=== PATIENT | male | born 1960 | race Caucasian/White ===

== ENCOUNTER 2017-05-26 01:38 | Inpatient (IN) | payer OTHER ==
[~2017-05-26] VITALS: Ht 198.1 cm; Wt 114.6 kg
[~2017-05-26 01:38] MED LIST: CARI250T PO
[2017-05-26] MEDS ORDERED: AMPICILLIN/SULBACTAM 3 GM in SODIUM CHLORIDE 0.9% 100 ML IV ONE (02:30)
[2017-05-26] MEDS ORDERED: SODIUM CHLORIDE FLUSH 10ML SYR IVF ONE ×2 (02:30)
[2017-05-26] MEDS ORDERED: ACETAMINOPHEN 500 MG TABLET PO ONE (02:30)
[2017-05-26] MEDS ORDERED: SODIUM CHLORIDE 0.9% 1,000ML IVBOLUS ONE (02:30)
[2017-05-26] MEDS ORDERED: VANCOMYCIN PER PHARMACY IV ONE (02:30)
[2017-05-26] MEDS ORDERED: ACETAMINOPHEN 500 MG TABLET ONE (02:39)
[2017-05-26] MEDS ORDERED: VANCOMYCIN 2,100 MG in SODIUM CHLORIDE 0.9% 500 ML IV ONE (03:00)
[2017-05-26 03:06] LABS: ASPARTATE AMINO TRANSFERASE 20 U/L (15-37); BLOOD UREA NITROGEN 14 mg/dL (7-18)
[2017-05-26] MEDS ORDERED: SODIUM CHLORIDE 0.9% 1,000 ML IV ONE (04:33)
[2017-05-26] MEDS ORDERED: ONDANSETRON 2MG/ML, 2ML IVPush PRN ×2 (05:00→05:30)
[2017-05-26] MEDS ORDERED: MORPHINE SULFATE 4 MG/ML, 1ML IVPush PRN (05:00)
[2017-05-26] MEDS ORDERED: NS + 20MEQ KCL 1,000 ML IV SCH ×2 (05:11→14:30)
[2017-05-26] MEDS ORDERED: VANCOMYCIN PER PHARMACY MC PRN (05:30)
[2017-05-26] MEDS ORDERED: TEMPLATE NON-FORMULARY MED. (Carisoprodol** (Soma**) 250 MG) HOMEMEDPO PRN (05:30)
[2017-05-26] MEDS ORDERED: morphine SULFATE 10 MG/ML, 1ML IVPush PRN (05:30)
[2017-05-26] MEDS ORDERED: POLYETHYLENE GLYCOL 17 GM PACKET PO PRN (05:30)
[2017-05-26] MEDS ORDERED: ACETAMINOPHEN 325 MG TABLET PO PRN (05:30)
[2017-05-26] MEDS ORDERED: DOCUSATE 100 MG CAPSULE PO PRN (05:30)
[2017-05-26 05:57] VITALS: BP 120/74
[2017-05-26] MEDS: AMPICILLIN/SULBACTAM 3 GM in SODIUM CHLORIDE 0.9% 100 ML IV SCH ×3 (06:25→18:14)
[2017-05-26] MEDS: HYDROcodone/APAP 5/325 TABLET PO PRN ×5 (06:25→23:23)
[2017-05-26] MEDS: ENOXAPARIN 40 MG/0.4 ML SQ SCH (06:25)
[2017-05-26 06:30] VITALS: BP 120/74
[2017-05-26] MEDS ORDERED: PHARMACOKINETIC MONITORING MC PRN (06:30)
[2017-05-26] MEDS ORDERED: PHARMACOKINETIC CONSULTATION MC ONE (06:30)
[2017-05-26] MEDS: SENNA/DOCUSATE TABLET PO SCH (10:33)
[2017-05-26 14:57] VITALS: BP 126/80
[2017-05-26] MEDS ORDERED: VANCOMYCIN 2,000 MG in SODIUM CHLORIDE 0.9% 250 ML IV SCH (15:00)
[2017-05-26 19:14] VITALS: BP 126/64
[2017-05-26] MEDS ORDERED: OMNIPAQUE 350 MG/ML, 100ML BOTTLE ONE (19:57)
[2017-05-27] MEDS: AMPICILLIN/SULBACTAM 3 GM in SODIUM CHLORIDE 0.9% 100 ML IV SCH ×2 (00:14→05:54)
[2017-05-27 00:43] VITALS: BP 142/85
[2017-05-27] MEDS: VANCOMYCIN 2,000 MG in SODIUM CHLORIDE 0.9% 500 ML IV SCH ×2 (03:25→16:00)
[2017-05-27] MEDS: HYDROcodone/APAP 5/325 TABLET PO PRN ×4 (03:25→17:37)
[2017-05-27 05:33] LABS: BLOOD UREA NITROGEN 9 mg/dL (7-18)
[2017-05-27] MEDS: ENOXAPARIN 40 MG/0.4 ML SQ SCH (05:54)
[2017-05-27 06:06] VITALS: BP 135/77
[2017-05-27] MEDS: SENNA/DOCUSATE TABLET PO SCH (07:48)
[2017-05-27] MEDS ORDERED: MAGNESIUM SULFATE PMX 2GM/50ML 50 ML IV ONE (11:00)
[2017-05-27] MEDS ORDERED: ERGOCALCIFEROL 50,000 UNIT CAPSULE PO SCH (11:00)
[2017-05-27] MEDS: PIPERACILLIN/TAZO/PMX 3.375GM 50 ML IV SCH ×3 (11:53→23:25)
[2017-05-27 14:23] VITALS: BP 130/82
[2017-05-27 18:49] VITALS: BP 144/86
[2017-05-28] MEDS: VANCOMYCIN 2,000 MG in SODIUM CHLORIDE 0.9% 500 ML IV SCH ×2 (03:00→15:21)
[2017-05-28] MEDS: HYDROcodone/APAP 5/325 TABLET PO PRN ×4 (03:05→17:47)
[2017-05-28 03:15] VITALS: BP 154/95
[2017-05-28 04:05] LABS: BLOOD UREA NITROGEN 7 mg/dL (7-18)
[2017-05-28] MEDS: ENOXAPARIN 40 MG/0.4 ML SQ SCH (05:24)
[2017-05-28] MEDS: PIPERACILLIN/TAZO/PMX 3.375GM 50 ML IV SCH ×4 (05:24→23:31)
[2017-05-28 07:12] VITALS: BP 149/91
[2017-05-28] MEDS: SENNA/DOCUSATE TABLET PO SCH (07:28)
[2017-05-28 14:57] VITALS: BP 125/80
[2017-05-28 19:45] VITALS: BP 142/84
[2017-05-29 01:47] VITALS: BP 149/98
[2017-05-29] MEDS: HYDROcodone/APAP 5/325 TABLET PO PRN ×3 (01:47→22:53)
[2017-05-29] MEDS: VANCOMYCIN 2,000 MG in SODIUM CHLORIDE 0.9% 500 ML IV SCH (03:00)
[2017-05-29] MEDS ORDERED: VANCOMYCIN 2,000 MG in SODIUM CHLORIDE 0.9% 500 ML IV SCH (03:17)
[2017-05-29] MEDS: PIPERACILLIN/TAZO/PMX 3.375GM 50 ML IV SCH ×4 (05:38→23:54)
[2017-05-29] MEDS: ENOXAPARIN 40 MG/0.4 ML SQ SCH (05:39)
[2017-05-29 08:04] VITALS: BP 141/98
[2017-05-29] MEDS: SENNA/DOCUSATE TABLET PO SCH (09:00)
[2017-05-29 14:17] VITALS: BP 151/91
[2017-05-29 20:01] VITALS: BP 145/86
[2017-05-29] MEDS ORDERED: GABA800T2 PO (22:56)
[2017-05-30 01:45] VITALS: BP 137/85
[2017-05-30] MEDS ORDERED: VANCOMYCIN 2,000 MG in SODIUM CHLORIDE 0.9% 500 ML IV SCH (03:00)
[2017-05-30] MEDS: PIPERACILLIN/TAZO/PMX 3.375GM 50 ML IV SCH ×2 (05:39→13:18)
[2017-05-30] MEDS: ENOXAPARIN 40 MG/0.4 ML SQ SCH (05:39)
[2017-05-30 07:20] VITALS: BP 145/94
[2017-05-30] MEDS: SENNA/DOCUSATE TABLET PO SCH (09:00)
[2017-05-30] MEDS ORDERED: GABAPENTIN 400 MG CAPSULE PO SCH (09:00)
[2017-05-30] MEDS: HYDROcodone/APAP 5/325 TABLET PO PRN (09:38)
[2017-05-30] MEDS ORDERED: ERGO500017 PO (13:09)
[2017-05-30] MEDS ORDERED: DOCU-30 PO (13:09)
[2017-05-30] MEDS ORDERED: HYDR-3240 PO (13:09)
[2017-05-30] MEDS ORDERED: CEPH-368 PO (13:09)
[2017-05-30] MEDS ORDERED: SULF1TAB24 PO (13:09)
[2017-05-30 14:02] VITALS: BP 157/98
[2017-05-30] MEDS ORDERED: HYDR-3307 PO (14:23)
== END 2017-05-30 14:35 | disposition home or self-care (01) | DRG 871 ==
LOC: ED 02:22 → EDIP 04:33 → 3NE 06:00 → DCLOUNGE 05-30 14:10
PROVIDERS: ADMIT Family Medicine; ATTEND Family Medicine
DX: A41.9 Sepsis, unspecified organism (principal); E43 Unspecified severe protein-calorie malnutrition; L03.317 Cellulitis of buttock; R65.20 Severe sepsis without septic shock; Z68.29 Body mass index [BMI] 29.0-29.9, adult; E55.9 Vitamin D deficiency, unspecified; G62.9 Polyneuropathy, unspecified; I48.91 Unspecified atrial fibrillation
CPT/HCPCS: 36415; 71010; 72132; 80048; 80053; 80202; 82306; 82607; 83605; 83735; 84145; 85025; 85610; 85730; 87040; 87324; 93005; 96361; 96365; 96366; 96368; 96375; J0295; J1650; J2543; J3370; J3480; Q9967; J2270; J3475; J7030; J7040; J7050